=== PATIENT | female | born 1975 | race African-American/Black ===

== ENCOUNTER → 2016-11-04 | Outpatient (CLI) | payer OTHER ==
--- NOTE | 2016-11-04 12:02 | REPMRS ---
Patient History The patient states she had a clinical breast exam in September 2016. No known family history of cancer. Digital Mammo Screening Bilat: November 04, 2016 - Exam #: [id number] Bilateral CC and MLO view(s) were taken. Technologist: Tanya Dao, Technologist No prior studies available for comparison. FINDINGS: There are scattered fibroglandular densities. There is no evidence of dominant mass, architectural distortion, or clustered microcalcification typical of malignancy. ASSESSMENT: BI-RADS/ACR category 1 mammogram. Negative. Recommendation Routine screening mammogram of both breasts in 1 year (for women over age 40). This mammogram was interpreted with the aid of an FDA-approved computer-aided dectection system. Electronically Signed By: Irwin Andersen MD 11/04/16 [id number]
== END ==
LOC: M RAD 10:06
PROVIDERS: ATTEND Family Medicine
DX: Z12.31 Encounter for screening mammogram for malignant neoplasm of breast (principal)

== ENCOUNTER → 2019-01-26 | Outpatient (CLI) | payer OTHER ==
[~2019-01-26] MED LIST: FLON1SPR; HYDR12.55 PO; ZYRT10CA5 PO
--- NOTE | 2019-01-26 09:16 | REP ---
BILATERAL SCREENING DIGITAL MAMMOGRAM WITHOUT TOMOSYNTHESIS: There are no palpable abnormalities or other breast complaints. The patient states she there is not had a clinical breast exam in over a year. The patient states she performs self-breast examinations one times per year.The Tyrer Cuzick Score is: 7.1%. Comparison is 11/04/2016. The breasts are heterogeneously dense, which could obscure small masses. There is no dominant mass, micro calcific cluster or architectural distortion that would indicate malignancy. There are no additional findings on 3D tomosynthesis. There is no change from the prior study. IMPRESSION: BIRADS 1: BI-RADS/ACR category 1 mammogram. Negative Mammogram. RECOMMENDATION:Routine annual screening mammography.Because of the increased breast density, annual adjunctive breast MRI in addition to screening mammography is recommended. This mammogram was interpreted with the aid of a FDA approved computer-aided detection system. A. Negative mammogram reports should not delay biopsy if a dominant or clinically suspicious mass is present.B. Not all breast cancers are identified by mammography or tomosynthesis.C. Adenosis and dense breasts may obscure an underlying neoplasm. Patient letter M1 dense breasts. Electronically Signed by Tong Shaver MD 01/26/2019 10:07 A
== END ==
LOC: M RAD 06:58
PROVIDERS: ATTEND Family Medicine
DX: Z12.31 Encounter for screening mammogram for malignant neoplasm of breast (principal)

== ENCOUNTER 2019-07-20 08:33 | Emergency (ER) | payer OTHER, BC ==
[~2019-07-20] VITALS: Ht 165.1 cm; Wt 105.6 kg
[2019-07-20] MEDS ORDERED: FLUORESCEIN OPHTH 1 MG STRIP OS ONE (09:15)
[2019-07-20] MEDS ORDERED: TETRACAINE 0.5% OPHTH SOLN 4ML OS ONE (09:15)
--- NOTE | 2019-07-20 09:39 | REP ---
CT facial bones: 07/20/2019. Indication: Face trauma. Comparison: None. Technique: Unenhanced axial CT images of the facial bones were performed with coronal and sagittal reconstructions provided. Findings: There is no acute facial bone fracture, subluxation or dislocation. No acute post traumatic ocular or intraorbital abnormalities are present. Minimal periosteal mucosal thickening is present within the inferior maxillary sinuses. Right maxillary retention cyst is noted. No significant intracranial abnormalities are detected. Impression: No acute facial bone fracture. Electronically Signed by Patric Grewal DO 07/20/2019 09:30 A
[2019-07-20] MEDS ORDERED: ACETAMINOPHEN 325 MG TAB PO ONE (10:00)
[2019-07-20 10:17] VITALS: BP 127/89
== END 2019-07-20 10:18 | disposition home or self-care (01) ==
LOC: M ED 08:33
DX: S00.83XA Contusion of other part of head, initial encounter (principal); S09.90XA Unspecified injury of head, initial encounter; Y04.8XXA Assault by other bodily force, initial encounter; Y92.129 Unspecified place in nursing home as the place of occurrence of the external cause; Y99.0 Civilian activity done for income or pay; I10 Essential (primary) hypertension; Z88.2 Allergy status to sulfonamides; Z91.040 Latex allergy status; Z79.899 Other long term (current) drug therapy

== ENCOUNTER → 2019-10-27 | Outpatient (REF) | payer BC ==
[2019-10-27 14:02] LABS: HEMATOCRIT 40.6 % (36.0-47.0); HEMOGLOBIN 12.7 g/dl (12.0-15.5); MEAN CORPUSCULAR HEMOGLOBIN 26.4 pg (27.0-33.0); MEAN CORPUSCULAR HGB CONC 31.3 g/dl (32.0-36.5); MEAN CORPUSCULAR VOLUME 84.4 fl (80.0-96.0); PLATELET COUNT, AUTOMATED 224 10^3/uL (150-450); RED BLOOD COUNT 4.81 10^6/uL (4.00-5.40); WHITE BLOOD COUNT 3.6 10^3/uL (4.0-10.0)
[2019-10-27 14:08] LABS: CHOLESTEROL RISK RATIO 2.956 (<5)
[2019-10-27 14:20] LABS: HEMOGLOBIN A1c 5.4 %
[2019-10-30 14:15] LABS: VITAMIN D 1,25 DIHYDROXY 46.9 pg/mL (19.9-79.3)
== END ==
LOC: M SFHCPLAZ 11:16
PROVIDERS: ATTEND Family Medicine
DX: Z13.228 Encounter for screening for other metabolic disorders (principal); E55.9 Vitamin D deficiency, unspecified; E61.1 Iron deficiency

== ENCOUNTER → 2019-10-27 | Outpatient (CLI) | payer BC ==
--- NOTE | 2019-10-27 12:59 | REPPI ---
RIGHT KNEE SERIES: Five views of the right knee performed. There is no acute fracture or dislocation. Joint spaces are unremarkable without significant arthritic change. No joint effusion is seen. IMPRESSION: Negative right knee series. Electronically Signed by Tong Gipson MD 10/27/2019 03:52 P
== END ==
LOC: M PLAIMG 11:18
PROVIDERS: ATTEND Student in an Organized Health Care Education/Training Program
DX: M25.561 Pain in right knee (principal)

== ENCOUNTER → 2020-01-29 | Outpatient (CLI) | payer BC ==
--- NOTE | 2020-01-29 16:29 | REPMRS ---
Patient History The patient states she has not had a clinical breast exam in over a year. No known family history of cancer. Digital Woman Screen Mammo: January 29, 2020 - Exam #: [id number] Bilateral CC and MLO view(s) were taken. Technologist: Gretchen Rausch, Technologist Prior study comparison: January 26, 2019, bilateral digital mammo screening bilat, performed at [facility]. November 04, 2016, bilateral digital mammo screening bilat, performed at [facility]. FINDINGS: There are scattered fibroglandular densities. The Volpara volumetric breast density category is:B. There has been no change in the appearance of the mammogram from the prior studies. There is a mild amount of scattered fibroglandular density which is fairly symmetric. There is no interval development of dominant mass, architectural distortion, or grouped microcalcification suggestive of malignancy. 3-D tomosynthesis shows no additional findings. Assessment: BI-RADS/ACR category 1 mammogram. Negative Mammogram. Recommendation Routine screening mammogram of both breasts in 1 year (for women over age 40). This patient's Lifetime Breast Cancer Risk is estimated at 13.0 %. This mammogram was interpreted with the aid of an FDA-approved computer-aided dectection system. Electronically Signed By: Irwin Andersen MD 01/29/20 [id number]
== END ==
LOC: M WHC 14:28
PROVIDERS: ATTEND Student in an Organized Health Care Education/Training Program
DX: Z12.31 Encounter for screening mammogram for malignant neoplasm of breast (principal)

== ENCOUNTER → 2020-08-01 | Outpatient (REF) | payer BC ==
[2020-08-01 16:22] LABS: BLOOD UREA NITROGEN 17 MG/DL (7-18); CARBON DIOXIDE LEVEL 30 MEQ/L (21-32); CHLORIDE LEVEL 103 MEQ/L (98-107); CHOLESTEROL LEVEL 212 MG/DL (<200); CHOLESTEROL RISK RATIO 3.261 (<5); CREATININE FOR GFR 0.89 MG/DL (0.55-1.30); GLOMERULAR FILTRATION RATE > 60.0 (>58); GLUCOSE, FASTING 86 MG/DL (70-100); HDL CHOLESTEROL 65 MG/DL (>40); LDL CHOLESTEROL 135 MG/DL (<100); NON-HDL-C 147 MG/DL; POTASSIUM SERUM 3.3 MEQ/L (3.5-5.1); SODIUM LEVEL 137 MEQ/L (136-145); TRIGLYCERIDES LEVEL 62 MG/DL (<150)
[2020-08-01 16:56] LABS: HEMOGLOBIN A1c 5.3 %
== END ==
LOC: M SFHCPLAZ 12:05
DX: Z00.00 Encounter for general adult medical examination without abnormal findings (principal); I10 Essential (primary) hypertension

== ENCOUNTER → 2020-12-12 | Outpatient (REF) | payer BC | LOC: M SFHCWAGY 17:15 | PROVIDERS: ATTEND Specialist | DX: Z12.4 Encounter for screening for malignant neoplasm of cervix (principal) | CPT/HCPCS: 87624; G0123 ==

== ENCOUNTER → 2021-02-06 | Outpatient (CLI) | payer BC | LOC: M WHC 08:49 | PROVIDERS: ATTEND Specialist | DX: Z12.31 Encounter for screening mammogram for malignant neoplasm of breast (principal); N92.0 Excessive and frequent menstruation with regular cycle; D25.9 Leiomyoma of uterus, unspecified ==

== ENCOUNTER → 2021-05-14 | Outpatient (REF) | LOC: M LAB 15:24 | PROVIDERS: ATTEND Nurse Practitioner Adult Health | DX: Z02.1 Encounter for pre-employment examination (principal) ==

== ENCOUNTER → 2021-06-05 | Outpatient (CLI) | payer BC ==
--- NOTE | 2021-06-05 15:17 | REP ---
INDICATION: RIGHT HIP PAIN. COMPARISON: None TECHNIQUE: AP frog-lateral view FINDINGS: There is possible minimal asymmetric hip joint space narrowing. There is no acute fracture, dislocation, or subluxation. There is no buttressing. There is no prominent marginal osteophytosis. IMPRESSION: Slight degenerative changes as described above. <Electronically signed by Timoteo Greene > 06/05/21 [id number]
--- NOTE | 2021-06-05 16:14 | REP ---
INDICATION: RIGHT HIP PAIN. COMPARISON: None. TECHNIQUE: Three views FINDINGS: Three views of the sacroiliac joints show them to be non-fused. There is no lysis or sclerosis of either the sacral or iliac side of either SI joint. There is no evidence of whiskering. There is no prominent osteophytosis. IMPRESSION: SI joints within normal limits. <Electronically signed by Timoteo Greene > 06/05/21 [id number]
[2021-06-05 18:00] LABS: HEMATOCRIT 31.2 % (36.0-47.0); HEMOGLOBIN 8.7 g/dl (12.0-15.5); MEAN CORPUSCULAR HGB CONC 27.9 g/dl (32.0-36.5); MEAN CORPUSCULAR VOLUME 64.5 fl (80.0-96.0); PLATELET COUNT, AUTOMATED 261 10^3/uL (150-450); RED BLOOD COUNT 4.84 10^6/uL (4.00-5.40); WHITE BLOOD COUNT 3.4 10^3/uL (4.0-10.0)
[2021-06-05 18:12] LABS: ALBUMIN 3.8 GM/DL (3.2-5.2); ALT/SGPT 36 U/L (12-78); BILIRUBIN,TOTAL 0.7 MG/DL (0.2-1.0); BLOOD UREA NITROGEN 15 MG/DL (7-18); CALCIUM LEVEL 9.4 MG/DL (8.5-10.1); CARBON DIOXIDE LEVEL 28 MEQ/L (21-32); CHLORIDE LEVEL 103 MEQ/L (98-107); CHOLESTEROL LEVEL 235 MG/DL (<200); CHOLESTEROL RISK RATIO 3.012 (<5); CREATININE FOR GFR 0.88 MG/DL (0.55-1.30); GLOMERULAR FILTRATION RATE > 60.0 (>58); GLUCOSE, FASTING 97 MG/DL (70-100); HDL CHOLESTEROL 78 MG/DL (>40); LDL CHOLESTEROL 136 MG/DL (<100); NON-HDL-C 157 MG/DL; POTASSIUM SERUM 4.1 MEQ/L (3.5-5.1); SODIUM LEVEL 137 MEQ/L (136-145); TOTAL PROTEIN 8.1 GM/DL (6.4-8.2); TRIGLYCERIDES LEVEL 105 MG/DL (<150)
[2021-06-05 18:21] LABS: TOTAL 25(OH) VITAMIN D 29.4 NG/ML (30.0-100.0)
== END ==
LOC: M PLAIMG 14:28
PROVIDERS: ATTEND Student in an Organized Health Care Education/Training Program
DX: K21.9 Gastro-esophageal reflux disease without esophagitis (principal); I10 Essential (primary) hypertension; E55.9 Vitamin D deficiency, unspecified; Z13.220 Encounter for screening for lipoid disorders; Z13.1 Encounter for screening for diabetes mellitus; M25.551 Pain in right hip

== ENCOUNTER → 2021-06-17 | Outpatient (CLI) | payer BC ==
[2021-06-17 14:34] LABS: PERCENT SATURATION 4.1 % (13.2-45.0)
[2021-06-19 17:07] LABS: SOLUBLE TRANSFERRIN RECEPTOR 64.2 nmol/L (12.2-27.3)
== END ==
LOC: M LAB 12:54
PROVIDERS: ATTEND Student in an Organized Health Care Education/Training Program
DX: D64.9 Anemia, unspecified (principal)

== ENCOUNTER 2021-06-30 09:38 | Outpatient (RCR) | payer BC | END 2021-07-01 | LOC: M PT 09:38 | PROVIDERS: ATTEND Student in an Organized Health Care Education/Training Program | DX: M25.551 Pain in right hip (principal) | CPT/HCPCS: 97110; 97162; G0283 ==

== ENCOUNTER 2021-07-18 15:45 | Outpatient (RCR) | payer BC | END 2021-08-01 | LOC: M PT 15:45 | PROVIDERS: ATTEND Student in an Organized Health Care Education/Training Program | DX: M25.551 Pain in right hip (principal) | CPT/HCPCS: 97010; 97110; G0283 ==

== ENCOUNTER → 2021-07-21 | Outpatient (CLI) | payer BC ==
[2021-07-21 13:52] LABS: BASO % 0.6 % (0.0-1.0); EOS # 0.7 10^3/uL (0.0-0.5); HEMATOCRIT 31.7 % (36.0-47.0); LYMPH # 1.4 10^3/uL (1.5-5.0); LYMPH % 42.6 % (24.0-44.0); MEAN CORPUSCULAR HEMOGLOBIN 18.9 pg (27.0-33.0); MEAN CORPUSCULAR HGB CONC 28.4 g/dl (32.0-36.5); MEAN CORPUSCULAR VOLUME 66.6 fl (80.0-96.0); MONO # 0.2 10^3/uL (0.0-0.8); MONO % 6.6 % (2.0-8.0); RED BLOOD COUNT 4.76 10^6/uL (4.00-5.40); WHITE BLOOD COUNT 3.3 10^3/uL (4.0-10.0)
[2021-07-21 14:25] LABS: PERCENT SATURATION 3.8 % (13.2-45.0)
[2021-07-21 14:52] LABS: EOS % 21.9 % (0.0-3.0); NEUTROPHILS # 0.9 10^3/uL (1.5-8.5)
[2021-07-21 14:53] LABS: PLATELET COUNT, AUTOMATED 248 10^3/uL (150-450)
== END ==
LOC: M PLALAB 11:37
PROVIDERS: ATTEND Student in an Organized Health Care Education/Training Program
DX: E61.1 Iron deficiency (principal); E55.9 Vitamin D deficiency, unspecified

== ENCOUNTER → 2021-07-21 | Outpatient (REF) | payer BC | LOC: M SFHCPLAZ 11:04 | PROVIDERS: ATTEND Family Medicine | DX: Z53.9 Procedure and treatment not carried out, unspecified reason (principal); E61.1 Iron deficiency; E55.9 Vitamin D deficiency, unspecified ==

== ENCOUNTER → 2021-08-21 | Outpatient (REF) | payer BC | LOC: M SFHCPLAZ 13:27 | PROVIDERS: ATTEND Family Medicine | DX: E61.1 Iron deficiency (principal); U09.9 Post COVID-19 condition, unspecified; R04.2 Hemoptysis; Z53.9 Procedure and treatment not carried out, unspecified reason ==

== ENCOUNTER → 2021-09-15 | Outpatient (CLI) | payer BC ==
[2021-09-15 16:30] LABS: BASO % 1.2 % (0.0-1.0); EOS # 0.7 10^3/uL (0.0-0.5); HEMATOCRIT 35.3 % (36.0-47.0); HEMOGLOBIN 10.6 g/dl (12.0-15.5); LYMPH # 1.7 10^3/uL (1.5-5.0); MEAN CORPUSCULAR HEMOGLOBIN 22.9 pg (27.0-33.0); MEAN CORPUSCULAR VOLUME 76.2 fl (80.0-96.0); MONO # 0.3 10^3/uL (0.0-0.8); MONO % 7.5 % (2.0-8.0); NEUTROPHILS % 21.7 % (36.0-66.0); PLATELET COUNT, AUTOMATED 172 10^3/uL (150-450); RED BLOOD COUNT 4.63 10^6/uL (4.00-5.40); WHITE BLOOD COUNT 3.5 10^3/uL (4.0-10.0)
[2021-09-15 17:00] LABS: BLOOD UREA NITROGEN 16 MG/DL (7-18); CARBON DIOXIDE LEVEL 27 MEQ/L (21-32); CHLORIDE LEVEL 103 MEQ/L (98-107); CREATININE FOR GFR 0.77 MG/DL (0.55-1.30); FERRITIN 17 NG/ML (8-252); GLOMERULAR FILTRATION RATE > 60.0 (>58); GLUCOSE, FASTING 69 MG/DL (70-100); IRON (FE) 275 UG/DL (50-170); PERCENT SATURATION 83.1 % (13.2-45.0); POTASSIUM SERUM 3.8 MEQ/L (3.5-5.1); SODIUM LEVEL 138 MEQ/L (136-145); TOTAL IRON BINDING CAPACITY 331 UG/DL (250-450)
[2021-09-15 17:22] LABS: EOS % 20.3 % (0.0-3.0)
[2021-09-15 17:23] LABS: NEUTROPHILS # 0.8 10^3/uL (1.5-8.5)
== END ==
LOC: M LAB 15:12
PROVIDERS: ATTEND Student in an Organized Health Care Education/Training Program
DX: E61.1 Iron deficiency (principal); U09.9 Post COVID-19 condition, unspecified; R04.2 Hemoptysis

== ENCOUNTER → 2022-04-23 | Outpatient (REF) | LOC: M EMP 09:28 | PROVIDERS: ATTEND Family Medicine | DX: Z20.822 Contact with and (suspected) exposure to COVID-19 (principal); Z11.52 Encounter for screening for COVID-19 ==

== ENCOUNTER → 2022-07-02 | Outpatient (CLI) | payer BC ==
[2022-07-02 15:56] LABS: HEMATOCRIT 39.4 % (36.0-47.0); HEMOGLOBIN 12.2 g/dl (12.0-15.5); MEAN CORPUSCULAR HEMOGLOBIN 25.4 pg (27.0-33.0); MEAN CORPUSCULAR VOLUME 82.1 fl (80.0-96.0); PLATELET COUNT, AUTOMATED 210 10^3/uL (150-450); WHITE BLOOD COUNT 2.8 10^3/uL (4.0-10.0)
[2022-07-02 18:09] LABS: TOTAL IRON BINDING CAPACITY 372 UG/DL (250-425)
[2022-07-02 18:11] LABS: ALBUMIN 3.8 G/DL (3.2-5.2); ALKALINE PHOSPHATASE 54 U/L (46-116); ALT/SGPT 19 U/L (7.0-40); AST/SGOT 15 U/L (<34); BILIRUBIN,TOTAL 0.8 MG/DL (0.3-1.2); BLOOD UREA NITROGEN 15 MG/DL (9-23); CALCIUM LEVEL 9.1 MG/DL (8.5-10.1); CARBON DIOXIDE LEVEL 27 MMOL/L (20-31); CHLORIDE LEVEL 104 MMOL/L (98-107); CHOLESTEROL LEVEL 236 MG/DL (<200); CHOLESTEROL RISK RATIO 2.92 (<5); CREATININE FOR GFR 0.74 MG/DL (0.55-1.30); FERRITIN 5.3 NG/ML (7.3-270.7); GLOMERULAR FILTRATION RATE > 60.0 (>58); GLUCOSE, FASTING 93 MG/DL (60-100); HDL CHOLESTEROL 80.6 MG/DL (>40); IRON (FE) 66 UG/DL (50-170); LDL CHOLESTEROL 140.2 MG/DL (<100); NON-HDL-C 155 MG/DL; PERCENT SATURATION 17.7 % (13.2-45.0); POTASSIUM SERUM 4.1 MMOL/L (3.5-5.1); SODIUM LEVEL 138 MMOL/L (136-145); THYROID STIMULATING HORMONE 1.326 uIU/ML (0.55-4.78); TOTAL 25(OH) VITAMIN D 17.8 NG/ML (20.0-100.0); TOTAL PROTEIN 7.5 G/DL (5.7-8.2); TRIGLYCERIDES LEVEL 76 MG/DL (<150)
[2022-07-02 19:30] LABS: HEMOGLOBIN A1c 5.3 % (4.0-6.0)
== END ==
LOC: M PLALAB 12:08
PROVIDERS: ATTEND Student in an Organized Health Care Education/Training Program
DX: E61.1 Iron deficiency (principal); E55.9 Vitamin D deficiency, unspecified; Z13.220 Encounter for screening for lipoid disorders; Z13.29 Encounter for screening for other suspected endocrine disorder; Z13.228 Encounter for screening for other metabolic disorders

== ENCOUNTER → 2022-07-23 | Outpatient (CLI) | payer BC | LOC: M WHC 07:56 | PROVIDERS: ATTEND Student in an Organized Health Care Education/Training Program | DX: Z12.31 Encounter for screening mammogram for malignant neoplasm of breast (principal) ==

== ENCOUNTER → 2022-10-13 | Outpatient (CLI) | payer BC ==
[2022-10-13 18:45] LABS: APPEARANCE, URINE HAZY (CLEAR); BACTERIA, URINE AUTO 1+ (NEGATIVE); BILIRUBIN, URINE AUTO NEGATIVE (NEGATIVE); BLOOD, URINE BLOOD 1+ (NEGATIVE); COLOR, URINE YELLOW (YELLOW); GLUCOSE, URINE (UA) AUTO NEGATIVE (NEGATIVE); KETONE, URINE AUTO NEGATIVE (NEGATIVE); LEUKOCYTE ESTERASE, URINE AUTO TRACE (NEGATIVE); NITRITE, URINE AUTO NEGATIVE (NEGATIVE); PROTEIN, URINE AUTO NEGATIVE (NEGATIVE); RBC, URINE AUTO 0 /HPF (0-3); SPECIFIC GRAVITY URINE AUTO 1.008 (1.002-1.035); SQUAMOUS EPITHELIAL CELL UR AU 9 /HPF (0-6); UROBILINOGEN, URINE AUTO 0.2 mg/dL (0.0-2.0); WBC, URINE AUTO 1 /HPF (0-3)
[2022-10-13 18:58] LABS: CHOLESTEROL LEVEL 248 MG/DL (<200); CHOLESTEROL RISK RATIO 3.09 (<5); HDL CHOLESTEROL 80.1 MG/DL (>40); IRON (FE) 60 UG/DL (50-170); LDL CHOLESTEROL 155.9 MG/DL (<100); NON-HDL-C 167.9 MG/DL; PERCENT SATURATION 17.1 % (13.2-45.0); TOTAL IRON BINDING CAPACITY 351 UG/DL (250-425); TRIGLYCERIDES LEVEL 60 MG/DL (<150)
[2022-10-13 18:59] LABS: HEPATITIS B SURFACE ANTIBODY POSITIVE (POSITIVE)
[2022-10-13 19:00] LABS: TOTAL 25(OH) VITAMIN D 26.5 NG/ML (20.0-100.0)
[2022-10-13 19:12] LABS: HEPATITIS B SURFACE ANTIGEN NEGATIVE (NEGATIVE)
[2022-10-13 19:25] LABS: HIV 1&2 SCREEN CENTAUR NEGATIVE (NEGATIVE)
[2022-10-14 16:02] LABS: GC DNA AMPLIFICATION NEGATIVE (NEGATIVE)
== END ==
LOC: M PLALAB 15:52
PROVIDERS: ATTEND Student in an Organized Health Care Education/Training Program
DX: E55.9 Vitamin D deficiency, unspecified (principal); E61.1 Iron deficiency; Z11.3 Encounter for screening for infections with a predominantly sexual mode of transmission

== ENCOUNTER → 2022-11-11 | Outpatient (CLI) | payer BC | LOC: M WHC 13:17 | PROVIDERS: ATTEND Student in an Organized Health Care Education/Training Program | DX: N92.0 Excessive and frequent menstruation with regular cycle (principal); D25.9 Leiomyoma of uterus, unspecified ==

== ENCOUNTER → 2023-05-26 | Outpatient (REF) | payer BC | LOC: M SFHCWAGY 13:20 | PROVIDERS: ATTEND Specialist | DX: Z12.4 Encounter for screening for malignant neoplasm of cervix (principal) | CPT/HCPCS: 87624; G0123 ==

== ENCOUNTER → 2023-12-03 | Outpatient (CLI) | payer BC ==
[2023-12-03 16:02] LABS: BASO % 0.8 % (0.0-1.0); EOS # 0.5 10^3/uL (0.0-0.5); EOS % 14.9 % (0.0-3.0); HEMATOCRIT 31.7 % (36.0-47.0); HEMOGLOBIN 9.5 g/dl (12.0-15.5); LYMPH % 56.2 % (24.0-44.0); MEAN CORPUSCULAR HEMOGLOBIN 21.3 pg (27.0-33.0); MEAN CORPUSCULAR VOLUME 71.1 fl (80.0-96.0); MONO # 0.3 10^3/uL (0.0-0.8); MONO % 8.5 % (2.0-8.0); NEUTROPHILS % 19.6 % (36.0-66.0); PLATELET COUNT, AUTOMATED 217 10^3/uL (150-450); RED BLOOD COUNT 4.46 10^6/uL (4.00-5.40); WHITE BLOOD COUNT 3.6 10^3/uL (4.0-10.0)
[2023-12-03 16:26] LABS: IRON (FE) 12 UG/DL (50-170)
[2023-12-03 16:27] LABS: FERRITIN 4.5 NG/ML (7.3-270.7)
[2023-12-03 16:39] LABS: PERCENT SATURATION 3.2 % (13.2-45.0); TOTAL IRON BINDING CAPACITY 370 UG/DL (250-425)
[2023-12-03 16:45] LABS: ALBUMIN 3.4 G/DL (3.2-5.2); ALKALINE PHOSPHATASE 50 U/L (46-116); ALT/SGPT 22 U/L (7.0-40); AST/SGOT 15 U/L (<34); BILIRUBIN,TOTAL 0.5 MG/DL (0.3-1.2); BLOOD UREA NITROGEN 16 MG/DL (9-23); CALCIUM LEVEL 9.3 MG/DL (8.5-10.1); CARBON DIOXIDE LEVEL 28 MMOL/L (20-31); CHLORIDE LEVEL 105 MMOL/L (98-107); CHOLESTEROL LEVEL 213 MG/DL (<200); CHOLESTEROL RISK RATIO 3.15 (<5); CREATININE FOR GFR 0.82 MG/DL (0.55-1.30); GLOMERULAR FILTRATION RATE > 60.0 (>58); GLUCOSE, FASTING 85 MG/DL (60-100); HDL CHOLESTEROL 67.6 MG/DL (>40); LDL CHOLESTEROL 127.2 MG/DL (<100); NON-HDL-C 145.4 MG/DL; POTASSIUM SERUM 4.2 MMOL/L (3.5-5.1); SODIUM LEVEL 141 MMOL/L (136-145); TOTAL PROTEIN 7.3 G/DL (5.7-8.2); TRIGLYCERIDES LEVEL 91 MG/DL (<150)
[2023-12-03 17:24] LABS: NEUTROPHILS # 0.7 10^3/uL (1.5-8.5)
== END ==
LOC: M PLALAB 14:00
PROVIDERS: ATTEND Student in an Organized Health Care Education/Training Program
DX: E61.1 Iron deficiency (principal); Z13.1 Encounter for screening for diabetes mellitus; Z13.220 Encounter for screening for lipoid disorders; E55.9 Vitamin D deficiency, unspecified

== ENCOUNTER → 2024-02-28 | Outpatient (CLI) | payer BC | LOC: M WUC 09:24 | PROVIDERS: ATTEND Student in an Organized Health Care Education/Training Program | DX: R06.02 Shortness of breath (principal) ==

== ENCOUNTER → 2024-03-03 | Outpatient (CLI) | payer BC | LOC: M WHC 15:20 | PROVIDERS: ATTEND Specialist | DX: Z12.31 Encounter for screening mammogram for malignant neoplasm of breast (principal) ==

== ENCOUNTER → 2024-03-13 | Outpatient (REF) | LOC: M EMP 18:37 | PROVIDERS: ATTEND Family Medicine | DX: Z11.52 Encounter for screening for COVID-19 (principal) ==

== ENCOUNTER → 2024-03-25 | Outpatient (CLI) | payer BC ==
[2024-03-25 11:00] LABS: CHOLESTEROL RISK RATIO 3.61 (<5); LDL CHOLESTEROL 121.8 MG/DL (<100)
[2024-03-25 11:02] LABS: FREE T4 1.19 NG/DL (0.89-1.76); THYROID STIMULATING HORMONE 1.211 uIU/ML (0.55-4.78)
== END ==
LOC: M LAB 09:53
DX: E61.1 Iron deficiency (principal); E78.5 Hyperlipidemia, unspecified; K21.9 Gastro-esophageal reflux disease without esophagitis

== ENCOUNTER → 2024-10-03 | Outpatient (REF) | LOC: M EMP 08:16 | PROVIDERS: ATTEND Family Medicine | DX: Z11.52 Encounter for screening for COVID-19 (principal) ==

== ENCOUNTER → 2025-02-05 | Outpatient (CLI) | payer BC ==
[~2025-02-05] MED LIST changes: +D200CAP3 PO; +FERR325T3 PO; +HYDR-3490 PO; +LEVOTAB10 PO; +PANT40TA29
== END ==
LOC: M WHC 01:19
PROVIDERS: ATTEND Family Medicine
DX: Z12.31 Encounter for screening mammogram for malignant neoplasm of breast (principal)

== ENCOUNTER → 2025-02-06 | Outpatient (CLI) | payer BC | LOC: M LAB 08:03 | DX: D50.0 Iron deficiency anemia secondary to blood loss (chronic) (principal) ==

== ENCOUNTER 2025-03-04 07:22 | Emergency (ER) | payer BC ==
[~2025-03-04] VITALS: Ht 165.1 cm; Wt 106.2 kg
[2025-03-04 08:14] LABS: BASO # 0.0 10^3/uL (0.0-0.2); BASO % 0.6 % (0.0-1.0); EOS # 0.4 10^3/uL (0.0-0.5); EOS % 13.1 % (0.0-3.0); LYMPH # 1.9 10^3/uL (1.5-5.0); LYMPH % 60.0 % (24.0-44.0); MONO # 0.2 10^3/uL (0.0-0.8); MONO % 7.2 % (2.0-8.0); NEUTROPHILS % 19.1 % (36.0-66.0); PLATELET COUNT, AUTOMATED 336 10^3/uL (150-450)
[2025-03-04] MEDS: ACETAMINOPHEN 325 MG TAB PO ONE (08:14)
[2025-03-04] MEDS: KETOROLAC 30 MG/ML 1 ML VIAL IV ONE (08:14)
[2025-03-04 08:16] LABS: NEUTROPHILS # 0.6 10^3/uL (1.5-8.5)
[2025-03-04 08:21] LABS: ERYTHROCYTE SEDIMENTATION RATE > 130 mm/hr (0-20)
[2025-03-04 09:04] LABS: CALCIUM LEVEL 9.6 MG/DL (8.5-10.1); CARBON DIOXIDE LEVEL 27.0 MMOL/L (20-31); CHLORIDE LEVEL 102.0 MMOL/L (98-107); CREATININE FOR GFR 0.82 MG/DL (0.55-1.30); GLOMERULAR FILTRATION RATE 88.2 (>58); POTASSIUM SERUM 3.8 MMOL/L (3.5-5.1); SODIUM LEVEL 141.0 MMOL/L (136-145)
[2025-03-04] MEDS: dexAMETHasone 4 MG/ML 1 ML VIAL IV ONE (09:22)
[2025-03-04 10:01] VITALS: BP 126/67
[2025-03-04 10:15] VITALS: O2SAT 99
[2025-03-04] MEDS ORDERED: FIOR1CAP PO (10:35)
[2025-03-04] MEDS ORDERED: KETO-204 PO (10:35)
[2025-03-04 10:41] VITALS: TEMP 97.9
== END 2025-03-04 10:42 | disposition home or self-care (01) ==
LOC: M ED 07:22
DX: R51.9 Headache, unspecified (principal); R70.0 Elevated erythrocyte sedimentation rate; D72.819 Decreased white blood cell count, unspecified; D50.9 Iron deficiency anemia, unspecified; I10 Essential (primary) hypertension; Z79.1 Long term (current) use of non-steroidal anti-inflammatories (NSAID); Z79.899 Other long term (current) drug therapy; Z88.2 Allergy status to sulfonamides; Z91.040 Latex allergy status
CPT/HCPCS: 70450; 80048; 85025; 85652; 96374; 96375; 99284; J1100; J1885; J2765

== ENCOUNTER 2025-03-30 09:15 | Outpatient (CLI) | payer BC ==
[~2025-03-30] VITALS: Ht 165.1 cm; Wt 107.2 kg
[~2025-03-30 09:15] MED LIST changes: +ALBUTEROL SULFATE 2.5 MG/0.5 ML INH CONCENTRATE NEB SOLN INH PRN; +EPINEPHrine INJ 1 MG/ML 1ML AMP IM PRN; +FIOR1CAP PO; +KETO-204 PO; +diphenhydrAMINE 50 MG/ML VIAL IV PRN
[2025-03-30] MEDS: IRON SUCROSE 300 MG in NS 250 ML OVER 90 MIN. IV ONE (09:31)
[2025-03-30 09:39] VITALS: BP 143/78; O2SAT 99
[2025-03-30 11:10] VITALS: BP 121/64; O2SAT 99
== END 2025-03-30 11:10 ==
LOC: M INFU 09:15
PROVIDERS: ATTEND Student in an Organized Health Care Education/Training Program
DX: D50.9 Iron deficiency anemia, unspecified (principal); Z88.2 Allergy status to sulfonamides; Z91.040 Latex allergy status
CPT/HCPCS: 96365; 96366; J1756

== ENCOUNTER 2025-04-06 09:52 | Outpatient (CLI) | payer BC ==
[2025-04-06 10:35] VITALS: BP 132/83; O2SAT 99
[2025-04-06] MEDS: IRON SUCROSE 300 MG in NS 250 ML IV ONE (10:47)
[2025-04-06 12:27] VITALS: BP 137/85; O2SAT 100
== END 2025-04-06 12:30 | disposition home or self-care (01) ==
LOC: M INFU 09:52
PROVIDERS: ATTEND Student in an Organized Health Care Education/Training Program
DX: D50.9 Iron deficiency anemia, unspecified (principal); Z88.2 Allergy status to sulfonamides; Z91.040 Latex allergy status
CPT/HCPCS: 96365; 96366; J1756

== ENCOUNTER → 2025-06-25 | Outpatient (REF) | payer BC ==
[~2025-06-25] MED LIST changes: -ALBUTEROL SULFATE 2.5 MG/0.5 ML INH CONCENTRATE NEB SOLN INH PRN; -EPINEPHrine INJ 1 MG/ML 1ML AMP IM PRN; -diphenhydrAMINE 50 MG/ML VIAL IV PRN
[2025-06-25 19:10] LABS: PLATELET COUNT, AUTOMATED 168 10^3/uL (150-450)
[2025-06-27 14:17] LABS: HPV APTIMA Not Detected (Not Detected)
== END ==
LOC: M SFHCWAGY 15:06
PROVIDERS: ATTEND Specialist
DX: Z12.4 Encounter for screening for malignant neoplasm of cervix (principal); Z77.9 Other contact with and (suspected) exposures hazardous to health; N92.0 Excessive and frequent menstruation with regular cycle
CPT/HCPCS: 82728; 85027; 87624; G0123

== ENCOUNTER → 2025-06-25 | Outpatient (CLI) | payer BC | LOC: M WHC 14:00 | PROVIDERS: ATTEND Specialist | DX: Z12.31 Encounter for screening mammogram for malignant neoplasm of breast (principal); R92.323 Mammographic fibroglandular density, bilateral breasts ==

== ENCOUNTER → 2025-07-09 | Outpatient (REF) | payer BC | LOC: M SFHCPLAZ 15:04 | DX: D70.8 Other neutropenia (principal); E16.2 Hypoglycemia, unspecified; D50.9 Iron deficiency anemia, unspecified; Z53.9 Procedure and treatment not carried out, unspecified reason ==

== ENCOUNTER → 2025-07-16 | Outpatient (CLI) | payer BC ==
[2025-07-16 10:28] LABS: BASO # 0.0 10^3/uL (0.0-0.2); BASO % 1.0 % (0.0-1.0); EOS # 0.6 10^3/uL (0.0-0.5); EOS % 19.7 % (0.0-3.0); LYMPH # 1.6 10^3/uL (1.5-5.0); LYMPH % 52.2 % (24.0-44.0); MONO # 0.2 10^3/uL (0.0-0.8); MONO % 6.1 % (2.0-8.0); NEUTROPHILS % 21.0 % (36.0-66.0); PLATELET COUNT, AUTOMATED 203 10^3/uL (150-450)
[2025-07-16 10:31] LABS: NEUTROPHILS # 0.7 10^3/uL (1.5-8.5)
[2025-07-16 10:48] LABS: C REACTIVE PROTEIN QUANTITATIV < 0.50 MG/DL (<1.0)
[2025-07-16 10:49] LABS: ALT/SGPT 35 U/L (7.0-40); AST/SGOT 31 U/L (<34); CALCIUM LEVEL 9.3 MG/DL (8.5-10.1); CARBON DIOXIDE LEVEL 27 MMOL/L (20-31); CHLORIDE LEVEL 103 MMOL/L (98-107); CREATININE FOR GFR 0.73 MG/DL (0.55-1.30); FREE T4 1.28 NG/DL (0.89-1.76); GLOMERULAR FILTRATION RATE > 90.0 (>58); IRON (FE) 56 UG/DL (50-170); POTASSIUM SERUM 4.2 MMOL/L (3.5-5.1); SODIUM LEVEL 139 MMOL/L (136-145)
[2025-07-16 10:51] LABS: VITAMIN B12 LEVEL 756 PG/ML (211-911)
[2025-07-16 11:21] LABS: HIV 1&2 SCREEN NEGATIVE (NEGATIVE)
[2025-07-18 10:28] LABS: INSULIN LEVEL 13.5 uIU/mL (<=18.4)
== END ==
LOC: M LAB 09:45
DX: D70.8 Other neutropenia (principal); E16.2 Hypoglycemia, unspecified; D50.9 Iron deficiency anemia, unspecified

== ENCOUNTER → 2025-08-01 | Outpatient (REF) | LOC: M EMP 08:36 | PROVIDERS: ATTEND Family Medicine | DX: Z11.2 Encounter for screening for other bacterial diseases (principal) ==